=== PATIENT | female | born 1990 | race Caucasian/White ===

== ENCOUNTER 2018-11-17 05:39 | Inpatient (IN) | payer OTHER ==
[2018-11-17] MEDS ORDERED: HYDROcodone/Acetaminophen 5/325 mg Tablet PO PRN ×4 (10:04→16:01)
[2018-11-17] MEDS ORDERED: Ibuprofen 800 MG TAB PO PRN (10:04)
[2018-11-17] MEDS ORDERED: Lidocaine 1% (PF) 30 ML VIAL SC PRN (10:04)
[2018-11-17] MEDS ORDERED: NS / Oxytocin 40 units/1000ml 1,000 ML IV PRN (10:04)
[2018-11-17] MEDS ORDERED: Meperidine HCl/PF 25 MG/ML VIAL IM/IV PRN (10:04)
[2018-11-17] MEDS ORDERED: Lactated Ringer's 1,000 ML IV SCH (10:04)
[2018-11-17] MEDS ORDERED: Ondansetron PF 4 MG/2 ML Vial IVP PRN (10:04)
[2018-11-17] MEDS ORDERED: NS w/ Oxytocin 10 units 500 ML IV SCH ×2 (10:04)
[2018-11-17] MEDS ORDERED: Promethazine HCl 25 MG/ML VIAL IM PRN (10:04)
[2018-11-17 10:09] VITALS: BMI 28.3
[2018-11-17] MEDS ORDERED: NS w/ Oxytocin 10 units 500 ML ONE (10:27)
[2018-11-17 10:51] LABS: Hemoglobin 8.9 g/dL (12.0-16.0); Mean Corpuscular HGB CONC 32.3 g/dL (32.0-36.0); Mean Corpuscular Hemoglobin 21.1 pg (27.0-31.0); Mean Corpuscular Volume 65.5 fL (78.0-98.0); Mean Platelet Volume 10.9 fL (7.4-10.4); Platelet Count 216 thou/uL (130-400); RBC Distribution Width 16.7 % (11.5-14.5); Red Blood Cell (RBC) Count 4.23 mill/uL (4.20-5.40); White Blood Cell (WBC) Count 8.4 thou/uL (4.8-10.8)
--- NOTE | 2018-11-17 11:17 | PDOC.LDHP ---
Labor and Delivery H&P Chief complaint: scheduled induction HPI: Pt is a 28yo @ 39 weeks here for elective IOL. A1GDM. Current gestational age (weeks): 39 Due date: 11/23/18 Dating criteria: last menstrual period, first trimester ultrasound Grav: 2 Para: 1 OB History Details: x 2 Current complications: gestational diabetes (diet controlled) Abnormal US findings: No Past Medical History: anemia Current medications: pre- vitamins, iron Previous surgical history: other (ovarian cystectomy) Allergies/Adverse Reactions: Allergies Allergy/AdvReac Type Severity Reaction Status Date / Time No Known Drug Allergies Allergy Verified 09/26/13 22:30 Social history: none - Physical Exam Vital signs reviewed and normal: yes General: NAD Heart: RRR Lungs: CTAB Abdomen: gravid Extremeties: no edema FHT: category 1 - Vaginal Exam cm dilated: 4 Effacement: 50% Station: -1 - OB Labs Blood type: AB RH: positive Antibody Screen: negative HIV: negative RPR: negative HEPSAg: negative 1 hour GCT: positive 3 hour GTT: positive GBS: negative Rubella: immune - Assessment L&D Assessment: elective induction at term - Plan Plan: admit to L&D, labor augmentation if indicated, informed consent obtained, anesthesia consult for pain management -: A/P: @ 39+ weeks here for elective IOL w OBHX of A1GDM. Favorable cervix, AROM w clear fluid on admit exam.
[2018-11-17 11:32] LABS: Syphilis Antibody Nonreactive (Nonreactive); Syphilis Antibody Index 0.06 S/CO (<1.00 Non-Reactive)
[2018-11-17 11:34] LABS: HBSAg Index 0.29 S/CO (0-0.99); Hep B Surf Ag Non-Reactive S/CO (NonReactive)
[2018-11-17] MEDS: Butorphanol Tartrate 1 MG/ML VIAL SLOW IVP PRN ×2 (11:56→13:05)
--- NOTE | 2018-11-17 15:01 | PDOC.OPDEL ---
OB Operative/Delivery Note Delivery Dr/Surgeon: Aron Pre-Delivery Diagnosis: elective induction Procedure/Post Delivery Dx: spontaneous vaginal delivery Weeks gestation: 39 Anesthesia: none - Findings A Sex: male - 1 min: 8 - 5 min: 9 - Additional Findings/Plan Placenta delivered: spontaneous Repaired Obstetrical Laceration: none Estimated blood loss: 300ml Compilations/Other Findings: shoulder dystocia relieved w McRobert's and suprapubic pressure. Post delivery plan: routine recovery
[2018-11-17] MEDS ORDERED: Preparation H Ointment 28 GM TUBE PR PRN (16:01)
[2018-11-17] MEDS ORDERED: Lanolin Ointment 7 GM TUBE TOP PRN (16:01)
[2018-11-17] MEDS ORDERED: Bisacodyl 10 MG SUPP PR PRN (16:01)
[2018-11-17] MEDS ORDERED: Milk Of Magnesia 30 ML UDCUP PO PRN (16:01)
[2018-11-17] MEDS ORDERED: Benzocaine-Menthol 82.5 ML CAN TOP PRN (16:01)
[2018-11-17] MEDS ORDERED: diphenhydrAMINE 25 MG CAP PO PRN (16:01)
[2018-11-17] MEDS ORDERED: NS / Oxytocin 40 units/1000ml 1,000 ML IV SCH (16:01)
[2018-11-17] MEDS: Ferrous Sulfate 325 MG TAB PO SCH (17:33)
[2018-11-17] MEDS: Ibuprofen 800 MG TAB PO SCH (21:38)
[2018-11-17] MEDS: Docusate Calcium (SURFAK) 240 MG CAP PO SCH (21:38)
--- NOTE | 2018-11-18 04:39 | PDOC.PP ---
Post Progress Note Post Day #: 0 (to 1 at 1500) Subjective: Doing well on PPD 1...no new concerns; would like to be DSCH'd home today PO intake tolerated: yes Flatus: yes Ambulation: yes Vital Signs (12 hours) Temp Pulse Resp BP Pulse Ox 11/18/18 04:00 97.8 F 84 18 92/55 L 11/18/18 00:30 98.3 F 101 H 18 112/56 L 11/17/18 20:15 98.3 F 70 18 125/77 97 Weight Weight 170 lb Vitals over last 24 hours reviewed - Physical Examination General: NAD Cardiovascular: no m/r/g Respiratory: clear to auscultation bilaterally Abdominal: + bowel sounds, lochia, no distention, appropriately TTP Extremities: negative homans (B) Neurological: no gross focal deficits Psychiatric: A&Ox3, normal affect Result Diagrams: 11/17/18 10:35 Additional Labs: Post Labs Blood Type O POSITIVE 11/17/18 10:35 Hep Bs Antigen Non-Reactive S/CO (NonReactive) 11/17/18 10:35 (1) Vaginal delivery Code(s): O80 - ENCOUNTER FOR FULL-TERM UNCOMPLICATED DELIVERY Status: Acute (2) Gestational diabetes Code(s): O24.419 - GESTATIONAL DIABETES MELLITUS IN , UNSP CONTROL Status: Acute - Assessment/Plan PPD 1 this PM...desires dsc to home this PM. HX A1DM...will need follow up. Motrin OTC for cramping. No evidence metritis or other complication at this time. F/U 2 - 4 weeks PP. Final DX: PP care routine Gestational Diabetes Normal vaginal delivery
[2018-11-18 05:42] LABS: Mean Corpuscular HGB CONC 31.8 g/dL (32.0-36.0); Mean Corpuscular Hemoglobin 21.6 pg (27.0-31.0); Mean Corpuscular Volume 68.1 fL (78.0-98.0); Mean Platelet Volume 11.3 fL (7.4-10.4); Platelet Count 187 thou/uL (130-400); RBC Distribution Width 16.6 % (11.5-14.5); Red Blood Cell (RBC) Count 3.69 mill/uL (4.20-5.40); White Blood Cell (WBC) Count 12.1 thou/uL (4.8-10.8)
[2018-11-18] MEDS: Ibuprofen 800 MG TAB PO SCH ×3 (06:25→21:16)
[2018-11-18] MEDS ORDERED: Adacel (T-DAP) 0.5 ML SYRINGE IM ONE (09:00)
[2018-11-18] MEDS: Prenatal Vitamin 1 TAB PO SCH (09:30)
[2018-11-18] MEDS: Docusate Calcium (SURFAK) 240 MG CAP PO SCH ×2 (09:30→21:16)
[2018-11-18] MEDS: Ferrous Sulfate 325 MG TAB PO SCH ×2 (09:30→17:50)
[2018-11-19] MEDS: Ibuprofen 800 MG TAB PO SCH ×2 (05:30→14:07)
[2018-11-19 09:23] VITALS: BP 101/57; TEMP 98.7
[2018-11-19] MEDS: Ferrous Sulfate 325 MG TAB PO SCH (09:47)
[2018-11-19] MEDS: Docusate Calcium (SURFAK) 240 MG CAP PO SCH (09:47)
[2018-11-19] MEDS: Prenatal Vitamin 1 TAB PO SCH (09:47)
--- NOTE | 2018-11-19 19:27 | DIS ---
DATE OF ADMISSION: 11/17/2018 DATE OF DISCHARGE: 11/19/2018 ADMITTING DIAGNOSIS: Induction of labor at 39 weeks. DISCHARGE DIAGNOSIS: Induction of labor at 39 weeks. PROCEDURE: Term spontaneous vaginal delivery. HOSPITAL COURSE: The patient is a 28-year-old female who presented for induction of labor at 39 weeks with a diagnosis of diet-controlled gestational diabetes. The patient's course was completed with a term spontaneous vaginal delivery. Her course has been uncomplicated, today is day #2. The patient reports that she is tolerating p.o., voiding on her own, having good pain control and ambulating well. Blood pressure today is 108/53, temperature 98.0, pulse of 80, respiratory rate of 18, saturating 98% on room air. Baby is on bilirubin lights with anticipation of discharge today. The patient is being discharged to home. She has instructions to follow up with Dr. Sharp in 6 weeks or sooner if she experiences fever, increasing pain, or bleeding. Job ID: [id number]
== END 2018-11-19 16:30 | disposition home or self-care (01) | DRG 807 ==
LOC: L&D 09:10 → EDSTATUS 13:38 → 3SW 21:20
PROVIDERS: ADMIT Obstetrics & Gynecology; ATTEND Obstetrics & Gynecology
PROC: 10E0XZZ Delivery of Products of Conception, External Approach (ICD-10-PCS; principal; 2018-11-17)
PROC: 10907ZC Drainage of Amniotic Fluid, Therapeutic from Products of Conception, Via Natural or Artificial Opening (ICD-10-PCS; 2018-11-17)
PROC: 3E033VJ Introduction of Other Hormone into Peripheral Vein, Percutaneous Approach (ICD-10-PCS; 2018-11-17)
DX: O13.4 Gestational [pregnancy-induced] hypertension without significant proteinuria, complicating childbirth (principal); Z37.0 Single live birth; O66.0 Obstructed labor due to shoulder dystocia; Z3A.39 39 weeks gestation of pregnancy
CPT/HCPCS: 36415; 36416; 85027; 86780; 86850; 86900; 86901; 87340; J0595; J2001; J2590